=== PATIENT | male | born 1955 | race Caucasian/White ===

== ENCOUNTER → 2021-08-15 | Outpatient (CLI) | payer OTHER, MEDICARE ==
[~2021-08-15] MED LIST: AMBIEN10 M1 PO; ASPIR-LOX AD325 MG PO; ASPIRIN81 M1 PO; COZAAR100 MG PO; DEPRESSION MED; DICLOFENAC SOD75 MG PO; DICYCLOMINE HCL20 MG PO; HTN MED; HYDROCODONE BIT1 T11 PO; LIPITOR40 MG; LIPITOR40 MG PO; LORAZEPAM0.5 MG PO; MOBIC15 MG PO; MOTRIN800 MG PO; NORVASC10 MG PO; PROTONIX40 MG PO; TRAMADOL HCL50 MG PO; TYLENOL W/CODEI1 TA2 PO; VENLAFAXINE150 MG PO
== END | disposition home or self-care (01) ==
LOC: COVID19 15:08
PROVIDERS: ATTEND Student in an Organized Health Care Education/Training Program
DX: Z20.822 Contact with and (suspected) exposure to COVID-19 (principal)